=== PATIENT | female | born 1940 | race Caucasian/White ===

== ENCOUNTER 2017-04-21 14:26 | Day surgery (SDC) | payer OTHER, SELFPAY ==
[~2017-04-21] VITALS: Ht 160 cm; Wt 99.4 kg
[~2017-04-21 14:26] MED LIST: ACET500 PO; AMIT10 PO; AMIT25 PO; ASCO500 PO; ASPI325 PO; ASPI81CH PO; CALGLU500 PO; CELE200 PO; CHOL10002 PO; CYAN500 PO; DICL25ER PO; DIPH50 PO; DOXE25 PO; ERGO400 PO; ESOM20 PO; FOLI400 PO; GABA300 PO; GENPREOPSU; HYDR1TAB94 PO; LORA10 PO; NAPR250 PO; NAPR500 PO; OXYACE5T PO; POTA10T PO; POTASSIUM GLUCONATE PO; PRED1SU RIGHTEYE; ROXICODONE5 MG PO
[2017-04-29] MEDS ORDERED: CYCL10 PO (08:03)
== END 2017-04-21 16:16 | disposition home or self-care (01) ==
LOC: ORSCSDS 14:26
PROVIDERS: Orthopaedic Surgery
PROC: 3E0R33Z Introduction of Anti-inflammatory into Spinal Canal, Percutaneous Approach (ICD-10-PCS; principal; 2017-04-21 15:30)
DX: M48.062 Spinal stenosis, lumbar region with neurogenic claudication (principal); I10 Essential (primary) hypertension; Z87.891 Personal history of nicotine dependence
CPT/HCPCS: J1040

== ENCOUNTER 2017-04-26 09:52 | Inpatient (IN) | END 2017-04-29 10:10 | disposition home or self-care (01) | DRG 93 ==

== ENCOUNTER 2018-03-04 11:42 | Emergency (ER) | payer OTHER ==
[~2018-03-04] VITALS: Ht 160 cm; Wt 83.9 kg
[~2018-03-04 11:42] MED LIST changes: +CYCL10 PO
[2018-03-04 12:59] LABS: BASOPHILS ABSOLUTE AUTO 0.06 K/mm3 (0.00-0.23); BASOPHILS PERCENT AUTO 1 % (0-2); EOSINOPHILS ABSOLUTE AUTO 0.11 K/mm3 (0.00-0.68); EOSINOPHILS PERCENT AUTO 2 % (0-6); Hematocrit 37.1 % (33.0-51.0); Hemoglobin 12.6 g/dL (11.5-16.0); IMMATURE GRAN ABSOLUTE AUTO 0.02 K/mm3 (0.00-0.10); IMMATURE GRAN PERCENT AUTO 0 % (0-1); LYMPHOCYTES ABSOLUTE AUTO 1.27 K/mm3 (0.84-5.20); LYMPHOCYTES PERCENT AUTO 21 % (21-46); MONOCYTES ABSOLUTE AUTO 0.44 K/mm3 (0.16-1.47); MONOCYTES PERCENT AUTO 7 % (4-13); Mean Corpuscular HGB 37.1 pg (26.0-34.0); Mean Corpuscular Volume 109 fL (80-100); Mean Platelet Volume 9.9 fL (9.1-12.4); NEUTROPHILS ABSOLUTE AUTO 4.27 K/mm3 (1.96-9.15); NEUTROPHILS PERCENT AUTO 69 % (41-73); Platelet Count 199 K/mm3 (150-400); RDW Coefficient Variation 14.1 % (11.7-14.2); RDW Standard Deviation 55.8 fL (35.1-46.3); White Blood Cell Count 6.17 K/mm3 (4.00-11.30)
[2018-03-04 13:16] LABS: Alanine Aminotransfer (ALT/SGP 38 U/L (12-78); Albumin, Blood 2.2 g/dL (3.4-5.0); Albumin/Globulin Ratio 0.5 (0.8-1.8); Alk Phos 135 U/L (50-136); Anion Gap 6 mmol/L (6-16); Aspartate Aminotrans (AST/SGOT 70 U/L (12-37); Bilirubin, Total 1.5 mg/dL (0.1-1.0); Blood Urea Nitrogen 6 mg/dL (8-24); Bun/Creatinine Ratio 10.8 (12.0-20.0); CO2, Blood 28 mmol/L (21-32); Calcium, Blood 8.4 mg/dL (8.5-10.1); Chloride, Blood 105 mmol/L (98-108); Creatinine, Blood 0.56 mg/dL (0.40-1.00); Globulin, Blood 4.7 g/dL (2.2-4.0); Glomerular Filtration Rate >60 (60-); Glucose, Blood 123 mg/dL (70-99); Potassium, Blood 3.7 mmol/L (3.5-5.5); Sodium, Blood 139 mmol/L (136-145); Total Protein, Blood 6.9 g/dL (6.4-8.2)
[2018-03-04 13:48] LABS: Appearance, Urine Cloudy (Clear); Blood, Urine 1+ (Neg); Color, Urine Amber (P-Yellow); Glucose Qualitative, Urine Neg (Neg); Ketones, Urine 1+ (Neg); Leukocyte Esterase, Urine 3+ (Neg); Nitrite, Urine Pos (Neg); Protein, Urine 2+ (Neg); Urobilinogen, Urine 4+ (Normal)
[2018-03-04 14:00] LABS: Bilirubin, Urine 1+ (Neg)
[2018-03-04 14:02] LABS: Squamous Epithelial Cells Few /hpf (Few)
[2018-03-04 14:03] LABS: Bacteria Many /hpf
[2018-03-04] MEDS ORDERED: Bactrim Ds Tab1 EACH PO (14:09)
[2018-03-04] MEDS ORDERED: Norco 5-325 Ta1 EACH PO (14:09)
== END 2018-03-04 14:59 | disposition home or self-care (01) ==
LOC: ER 11:42
PROVIDERS: Emergency Medicine
DX: S22.089A Unspecified fracture of T11-T12 vertebra, initial encounter for closed fracture (principal); N39.0 Urinary tract infection, site not specified; W19.XXXA Unspecified fall, initial encounter; Z88.0 Allergy status to penicillin; Z88.8 Allergy status to other drugs, medicaments and biological substances; Z88.1 Allergy status to other antibiotic agents; Z91.048 Other nonmedicinal substance allergy status; Z91.040 Latex allergy status; Z79.899 Other long term (current) drug therapy; Z79.52 Long term (current) use of systemic steroids; Z79.82 Long term (current) use of aspirin; K21.9 Gastro-esophageal reflux disease without esophagitis; Z87.891 Personal history of nicotine dependence
CPT/HCPCS: 70450; 71045; 72100; 80053; 81001; 83880; 85025; 87077; 87086; 87186; 96374; 96375; 99284-25; J1885; J2405; J3010; P9612

== ENCOUNTER 2018-06-13 10:16 | Day surgery (SDC) | payer OTHER ==
[~2018-06-13 10:16] MED LIST changes: +Bactrim Ds Tab1 EACH PO; +Norco 5-325 Ta1 EACH PO
--- NOTE | 2018-06-13 10:45 | NUR ---
INTO [facility] ADMISSION STARTED TO UNIT.
--- NOTE | 2018-06-13 11:11 | NUR ---
4 ATTEMPTS FIRST TWO BY Saad KEVIN 2ND 2 BY Obi COX RN
--- NOTE | 2018-06-13 11:35 | NUR ---
06/13/18 1135 Reina Fernando History, Chart, Medications and Allergies reviewed before start of procedure.PATIENT DETERMINED TO BE ASA APPROPRIATE FOR PROPOFOL SEDATION PRIOR TO START OF PROCEDURE BY .MONITOR INTACT WITH CONTINUOUS PULSE OXIMETRY AND INTERMITTENT BP.3-LEAD EKG REVIEWED WITH PHYSICIAN PRIOR TO START OF PROCEDURE.O2 VIA N/C INTACT THROUGHOUT SEDATION/PROCEDURE.
--- NOTE | 2018-06-13 11:46 | NUR ---
INTO STEP VIA [facility]ZANDRO. PT A&0X3. REPORTS 5/10 "BUTT" PAIN. IRRITATION AND MILD EXCORIATED NOTED PER DR. ANDERSON. PT TO HAVE RX FOR LOTRIMIN CREAM. CALAZIME OINTMENT APPLIED.WILL SEND HOME WITH PATIENT.
--- NOTE | 2018-06-13 13:14 | NUR ---
PT REPORTED ONGOING "BUTT" PAIN. PT STATED THAT THE PAIN STARTED APOOXIMATELY 1 YEAR AGO FOLLOWING AN EPIDURAL STEROID INJECTION. PT APPEARS QUITE VAGUE WHEN DESCRIBING THE PAIN. PT STATES THAT THE PAIN IS "SEVERE" AND THAT SHE DOESN'T RECALL IT EVER HURTING THIS BAD. PT DID DRINK PO FLUIDS WITHOUT DIFFICULTY. VS WDL THROUGH OUT RECOVERY. REVIEWED DISCHARGE INSTRUCTIONS WITH PATIENT AND HER SPOUSE. BOTH VERBALIZE UNDERSTANDING. PT REMINDED TO FOLLOW UP WITH PRIMARY CARE PROVIDER.
--- NOTE | 2018-06-13 13:23 | NUR ---
WHEN TAKING PATIENT OUT TO [facility]IDE HOME, STOPPED BY RN NURSE. FELL IN PARKING LOT, HIT HEAD, TAKEN TO ER. ER NURSE TOOK PATIENT TO SEE HER IN ER. INFORMED PATIENT UNABLE TO DRIVE DUE TO SEDATION. ER NURSE REPORTS HE WILL TRY TO ARRANGE TRANSPORT FOR PATIENT AND SPOUSE AFTER HE IS ABLE TO BE SEEN AND TREATED IN ER.
== END 2018-06-13 13:20 | disposition home or self-care (01) ==
LOC: ORSCMMR 10:16 → ORD 11:00 → ORSCMMR 13:20
PROVIDERS: Internal Medicine Gastroenterology
PROC: 0DBN8ZX Excision of Sigmoid Colon, Via Natural or Artificial Opening Endoscopic, Diagnostic (ICD-10-PCS; principal; 2018-06-13 11:00)
PROC: 0DBH8ZX Excision of Cecum, Via Natural or Artificial Opening Endoscopic, Diagnostic (ICD-10-PCS; principal; 2018-06-13 11:00)
PROC: 0DBL8ZX Excision of Transverse Colon, Via Natural or Artificial Opening Endoscopic, Diagnostic (ICD-10-PCS; principal; 2018-06-13 11:00)
PROC: 0DBM8ZX Excision of Descending Colon, Via Natural or Artificial Opening Endoscopic, Diagnostic (ICD-10-PCS; principal; 2018-06-13 11:00)
DX: K62.5 Hemorrhage of anus and rectum (principal); D12.3 Benign neoplasm of transverse colon; D12.4 Benign neoplasm of descending colon; K63.5 Polyp of colon; K64.4 Residual hemorrhoidal skin tags; K64.8 Other hemorrhoids; Z86.010 Personal history of colon polyps; Z79.82 Long term (current) use of aspirin; Z79.899 Other long term (current) drug therapy
CPT/HCPCS: 88305; J2250; J2704; J7120

== ENCOUNTER → 2018-07-20 | Outpatient (CLI) | payer OTHER | END | disposition home or self-care (01) | LOC: LAB EV 12:30 → LAB SHORT 12:30 | DX: R39.15 Urgency of urination (principal) | CPT/HCPCS: 87077; 87086; 87186 ==

== ENCOUNTER → 2018-09-15 | Outpatient (CLI) | payer OTHER | END | disposition home or self-care (01) | LOC: LAB EV 11:45 → LAB SHORT 11:45 | DX: R21 Rash and other nonspecific skin eruption (principal) | CPT/HCPCS: 87070; 87205; 87252; 87254 ==

== ENCOUNTER 2020-07-17 11:55 | Emergency (ER) | payer OTHER ==
[~2020-07-17] VITALS: Ht 162.6 cm; Wt 61.2 kg
[2020-07-17 12:33] LABS: BASOPHILS ABSOLUTE AUTO 0.07 K/mm3 (0.00-0.23); BASOPHILS PERCENT AUTO 1 % (0-2); EOSINOPHILS ABSOLUTE AUTO 0.07 K/mm3 (0.00-0.68); EOSINOPHILS PERCENT AUTO 1 % (0-6); Hematocrit 42.9 % (33.0-51.0); IMMATURE GRAN ABSOLUTE AUTO 0.02 K/mm3 (0.00-0.10); IMMATURE GRAN PERCENT AUTO 0 % (0-1); LYMPHOCYTES PERCENT AUTO 22 % (21-46); MONOCYTES ABSOLUTE AUTO 0.48 K/mm3 (0.16-1.47); MONOCYTES PERCENT AUTO 7 % (4-13); Mean Corpuscular Volume 100 fL (80-100); Mean Platelet Volume 10.2 fL (9.1-12.4); NEUTROPHILS ABSOLUTE AUTO 4.83 K/mm3 (1.96-9.15); NEUTROPHILS PERCENT AUTO 69 % (41-73); Platelet Count 239 K/mm3 (150-400); RDW Coefficient Variation 12.2 % (11.7-14.2); RDW Standard Deviation 45.2 fL (35.1-46.3); Red Blood Cell Count 4.28 M/mm3 (3.80-5.20); White Blood Cell Count 6.97 K/mm3 (4.00-11.30)
[2020-07-17 12:42] LABS: International Normalized Ratio 1.03; Prothrombin Time Results 11.1 Sec (9.7-11.5)
[2020-07-17 12:45] LABS: Alanine Aminotransfer (ALT/SGP 25 U/L (12-78); Albumin, Blood 3.4 g/dL (3.4-5.0); Albumin/Globulin Ratio 0.8 (0.8-1.8); Alk Phos 108 U/L (50-136); Anion Gap 3 mmol/L (6-16); Aspartate Aminotrans (AST/SGOT 26 U/L (12-37); Bilirubin, Total 0.4 mg/dL (0.1-1.0); Blood Urea Nitrogen 14 mg/dL (8-24); Bun/Creatinine Ratio 20.1 (12.0-20.0); CO2, Blood 28 mmol/L (21-32); Calcium, Blood 9.6 mg/dL (8.5-10.1); Chloride, Blood 107 mmol/L (98-108); Globulin, Blood 4.1 g/dL (2.2-4.0); Glomerular Filtration Rate >60 (60-); Glucose, Blood 146 mg/dL (70-99); Sodium, Blood 138 mmol/L (136-145); Total Protein, Blood 7.5 g/dL (6.4-8.2)
== END 2020-07-17 16:03 | disposition short-term general hospital (02) ==
LOC: ER 11:55
PROVIDERS: Emergency Medicine
DX: I63.9 Cerebral infarction, unspecified (principal); R47.01 Aphasia; G81.91 Hemiplegia, unspecified affecting right dominant side; K21.9 Gastro-esophageal reflux disease without esophagitis; Z79.82 Long term (current) use of aspirin; Z79.899 Other long term (current) drug therapy; Z88.0 Allergy status to penicillin; Z91.040 Latex allergy status; Z87.891 Personal history of nicotine dependence
CPT/HCPCS: 36415; 37195; 70450; 70496; 70498; 80053; 84484; 85025; 85610; 85730; 93005; 93010; 99285-25; J2997; Q3014; Q9967

== ENCOUNTER 2021-06-08 01:11 | Inpatient (IN) | payer OTHER, MEDICARE ==
[~2021-06-08] VITALS: Ht 154.9 cm; Wt 57.1 kg
[2021-06-08 06:15] LABS: BASOPHILS ABSOLUTE AUTO 0.05 K/mm3 (0.00-0.23); BASOPHILS PERCENT AUTO 1 % (0-2); EOSINOPHILS ABSOLUTE AUTO 0.05 K/mm3 (0.00-0.68); EOSINOPHILS PERCENT AUTO 1 % (0-6); Hematocrit 37.3 % (33.0-51.0); Hemoglobin 13.1 g/dL (11.5-16.0); IMMATURE GRAN ABSOLUTE AUTO 0.02 K/mm3 (0.00-0.10); IMMATURE GRAN PERCENT AUTO 0 % (0-1); LYMPHOCYTES ABSOLUTE AUTO 0.81 K/mm3 (0.84-5.20); LYMPHOCYTES PERCENT AUTO 10 % (21-46); MONOCYTES ABSOLUTE AUTO 0.54 K/mm3 (0.16-1.47); MONOCYTES PERCENT AUTO 6 % (4-13); Mean Corpuscular HGB 33.9 pg (26.0-34.0); Mean Corpuscular HGB Conc 35.1 g/dL (31.5-36.5); Mean Corpuscular Volume 97 fL (80-100); Mean Platelet Volume 10.1 fL (9.1-12.4); NEUTROPHILS ABSOLUTE AUTO 6.98 K/mm3 (1.96-9.15); NEUTROPHILS PERCENT AUTO 83 % (41-73); Platelet Count 163 K/mm3 (150-400); RDW Coefficient Variation 12.7 % (11.7-14.2); RDW Standard Deviation 45.1 fL (35.1-46.3); Red Blood Cell Count 3.86 M/mm3 (3.80-5.20); White Blood Cell Count 8.45 K/mm3 (4.00-11.30)
--- NOTE | 2021-06-08 06:29 | NUR ---
PT ARRIVED TO THE FLOOR AT APPROX 0535. A/O X4. VITAL SIGNS TAKEN. TELE PLACED ON PATIENT. PT APPEARS TO BE IN SIGNIFICANT AMOUNT OF PAIN. R LEG INTERNALLY ROTATED AT THE HIP. SCATTERED BRUISING THROUGHOUT. WILL CONTINUE TO MONITOR.
[2021-06-08 06:35] LABS: Alanine Aminotransfer (ALT/SGP 23 U/L (12-78); Albumin, Blood 3.4 g/dL (3.4-5.0); Alk Phos 72 U/L (50-136); Anion Gap 10 mmol/L (6-16); Aspartate Aminotrans (AST/SGOT 22 U/L (12-37); Bilirubin, Total 0.8 mg/dL (0.1-1.0); Blood Urea Nitrogen 8 mg/dL (8-24); Bun/Creatinine Ratio 15.4 (12.0-20.0); CO2, Blood 23 mmol/L (21-32); Chloride, Blood 107 mmol/L (98-108); Creatinine, Blood 0.52 mg/dL (0.40-1.00); Globulin, Blood 3.4 g/dL (2.2-4.0); Glomerular Filtration Rate >60 (60-); Glucose, Blood 141 mg/dL (70-99); Potassium, Blood 3.8 mmol/L (3.5-5.5); Sodium, Blood 140 mmol/L (136-145); Total Protein, Blood 6.8 g/dL (6.4-8.2)
[2021-06-08 07:52] LABS: International Normalized Ratio 1.09; Prothrombin Time Results 11.4 Sec (9.7-11.5)
[2021-06-08] MEDS ORDERED: CLOP75 PO (09:24)
[2021-06-08] MEDS ORDERED: TRAM50 PO (09:25)
[2021-06-08] MEDS ORDERED: ALEN70 PO (09:26)
[2021-06-08] MEDS ORDERED: METO25 PO (09:27)
[2021-06-08] MEDS ORDERED: CVS AIRSHIELD PO (09:28)
--- NOTE | 2021-06-08 09:30 | NUR ---
DR PHILIPPE NOTIFIED THAT PT TAKES PLAVIX DAILY. PLAN FOR OR TOMORROW.
--- NOTE | 2021-06-08 18:32 | NUR ---
SHIFT SUMMARY UNFORTUNATLY PAIN WAS POORLY MANAGED w/ FENTANYL. MD CALLED & NEW ORDERS RECEIVED. PT STILL C/O HIGH PAIN BUT IS NOTICABLY MORE RELAXED, ABLE TO DRINK WATER, NO MORE GRIMACING, WAS ABLE TO PLACE FERREIRA. NPO AFTER MIDNIGHT & PLAN FOR OR TOMORROW.
[2021-06-09 04:24] LABS: Hematocrit 33.6 % (33.0-51.0); Hemoglobin 11.5 g/dL (11.5-16.0); Mean Corpuscular HGB 33.8 pg (26.0-34.0); Mean Corpuscular HGB Conc 34.2 g/dL (31.5-36.5); Mean Corpuscular Volume 99 fL (80-100); Mean Platelet Volume 10.2 fL (9.1-12.4); Platelet Count 146 K/mm3 (150-400); RDW Coefficient Variation 12.9 % (11.7-14.2); RDW Standard Deviation 46.5 fL (35.1-46.3); White Blood Cell Count 7.31 K/mm3 (4.00-11.30)
--- NOTE | 2021-06-09 04:26 | NUR ---
SHIFT SUMMARY PT VERY PAINFUL AT START OF SHIFT R/T TO RIGHT HIP WHICH HAS REMAINED EXTERNALLY ROTATED. 0.5MG IV DILAUDID GIVEN X1 WHICH PT REPORTS EFFECTIVE. PT CONT TO DECLINE BEING REPOSITIONED T/O SHIFT. NPO AT MIDNIGHT FOR SURGERY TODAY. FERREIRA INTACT. TELE IN PLACE. CALL LIGHT WITHIN REACH.
[2021-06-09 04:47] LABS: Alanine Aminotransfer (ALT/SGP 24 U/L (12-78); Albumin/Globulin Ratio 0.9 (0.8-1.8); Alk Phos 54 U/L (50-136); Anion Gap 6 mmol/L (6-16); Aspartate Aminotrans (AST/SGOT 14 U/L (12-37); Bilirubin, Total 1.2 mg/dL (0.1-1.0); Blood Urea Nitrogen 10 mg/dL (8-24); Bun/Creatinine Ratio 19.6 (12.0-20.0); CO2, Blood 27 mmol/L (21-32); Calcium, Blood 8.6 mg/dL (8.5-10.1); Chloride, Blood 105 mmol/L (98-108); Creatinine, Blood 0.51 mg/dL (0.40-1.00); Globulin, Blood 3.3 g/dL (2.2-4.0); Glomerular Filtration Rate >60 (60-); Glucose, Blood 132 mg/dL (70-99); Potassium, Blood 3.7 mmol/L (3.5-5.5); Sodium, Blood 138 mmol/L (136-145); Total Protein, Blood 6.3 g/dL (6.4-8.2)
[2021-06-09 09:05] LABS: Influenza A, PCR NEGATIVE (NEGATIVE); Influenza B, PCR NEGATIVE (NEGATIVE); Resp Syncytial Virus, PCR NEGATIVE (NEGATIVE); SARS-Cov-2 (COVID-19) PCR, MMC NEGATIVE (NEGATIVE)
--- NOTE | 2021-06-09 10:49 | NUR ---
Pt. is in bed and is awake. Pt. welcomes my visit. Pt. is pleasant and has little concerns after surgery. Pt. is a bit unsettled by the wait for discharge, but is overall in a pleasant disposition. Normalize the pt. experience. Establish rapport. Pt. displays evidence of confidence and encouragement. Prayed for the pt. Pt. verbalized gratitude for the spiritual care visit.
--- NOTE | 2021-06-09 11:39 | NUR ---
TO DAY SURGERY VIA HOSPTIAL BED
--- NOTE | 2021-06-09 11:44 | NUR ---
THE PATIENT WAS BROUGHT TO DAY SURGERY FOR HER PROCEDURE.
--- NOTE | 2021-06-09 13:49 | NUR ---
06/09/21 1349 Paco Mccoy PATIENT ARRIVED TO OR WITH FERREIRA CATH IN PLACE. FERREIRA DRAINED FOR 200 ML ANGEL CLOUDY URINE
--- NOTE | 2021-06-09 15:15 | NUR ---
POST OP ARRIVES TO UNIT VIA HOSPITAL BED. DROWSY BUT OPENS EYES & ANSWERS YES/NO ?'s. LUNGS CLEAR SLIGHTLY DIM IN BASES. WEAK COUGH. 2L NC. TELE REPLACED. R HIP w/ FOAM TAPE OVER x 2; POSTERIORLY. PPP. RESTING w/ EYES CLOSED. VSS.
--- NOTE | 2021-06-10 04:03 | NUR ---
SHIFT SUMMARY NO ACUTE CHANGES. PT REFUSES TO BE REPOSITIONED T/O SHIFT. ULTRAM FOR RIGHT HIP PAIN PRN. DRESSING TO HIP REMAINS CDI. FERREIRA IN PLACE. IVF + ABX INFUSING PER ORDERS. TELE IN PLACE. CALL LIGHT WITHIN REACH.
[2021-06-10 05:29] LABS: BASOPHILS ABSOLUTE AUTO 0.01 K/mm3 (0.00-0.23); BASOPHILS PERCENT AUTO 0 % (0-2); EOSINOPHILS PERCENT AUTO 0 % (0-6); Hematocrit 29.6 % (33.0-51.0); Hemoglobin 10.3 g/dL (11.5-16.0); IMMATURE GRAN ABSOLUTE AUTO 0.01 K/mm3 (0.00-0.10); IMMATURE GRAN PERCENT AUTO 0 % (0-1); LYMPHOCYTES ABSOLUTE AUTO 0.52 K/mm3 (0.84-5.20); LYMPHOCYTES PERCENT AUTO 9 % (21-46); MONOCYTES ABSOLUTE AUTO 0.46 K/mm3 (0.16-1.47); MONOCYTES PERCENT AUTO 8 % (4-13); Mean Corpuscular HGB Conc 34.8 g/dL (31.5-36.5); Mean Corpuscular Volume 98 fL (80-100); Mean Platelet Volume 10.7 fL (9.1-12.4); NEUTROPHILS ABSOLUTE AUTO 4.77 K/mm3 (1.96-9.15); NEUTROPHILS PERCENT AUTO 83 % (41-73); Platelet Count 158 K/mm3 (150-400); RDW Coefficient Variation 12.3 % (11.7-14.2); RDW Standard Deviation 44.2 fL (35.1-46.3); Red Blood Cell Count 3.03 M/mm3 (3.80-5.20); White Blood Cell Count 5.77 K/mm3 (4.00-11.30)
[2021-06-10 06:02] LABS: Anion Gap 5 mmol/L (6-16); Blood Urea Nitrogen 8 mg/dL (8-24); Bun/Creatinine Ratio 17.8 (12.0-20.0); CO2, Blood 27 mmol/L (21-32); Calcium, Blood 8.4 mg/dL (8.5-10.1); Chloride, Blood 105 mmol/L (98-108); Creatinine, Blood 0.45 mg/dL (0.40-1.00); Glomerular Filtration Rate >60 (60-); Glucose, Blood 193 mg/dL (70-99); Magnesium, Blood 1.9 mg/dL (1.6-2.4); Potassium, Blood 3.9 mmol/L (3.5-5.5); Sodium, Blood 137 mmol/L (136-145)
--- NOTE | 2021-06-10 11:10 | NUR ---
Pt. is in bed and awake. Pt. welcomes my visit. Spouse is present. Pt. is very unsettled by the news that she would be discharged to a local senior care. Listen empathetically. Pt. becomes cathartic. Provided a calming presence. Pt. verbalized her concerns were based on past experience. Pt. requested prayer. Prayed with Pt. Pt. and spouse displayed evidence of reduced stress and verbalized gratitude for the spiritual care visit.
--- NOTE | 2021-06-10 17:11 | NUR ---
SHIFT SUMMARY PT WAS PAINFUL BUT WORKED w/ OT THIS AM & PT IN THE AFTERNOON. CURRENTLY STILL UP IN CHAIR. EATING & DRINKING WELL SO WAS SL. DR PHILIPPE CHANGED SHARA TO TIMOTHY x 2. JHON COREY'd THIS AFTERNOON; ATTENDS PLACED FOR INCONTINENCE.
[2021-06-11 04:49] LABS: Hematocrit 27.3 % (33.0-51.0); Hemoglobin 9.3 g/dL (11.5-16.0); Mean Corpuscular HGB 33.8 pg (26.0-34.0); Mean Corpuscular HGB Conc 34.1 g/dL (31.5-36.5); Mean Corpuscular Volume 99 fL (80-100); Mean Platelet Volume 10.3 fL (9.1-12.4); Platelet Count 140 K/mm3 (150-400); RDW Coefficient Variation 12.6 % (11.7-14.2); Red Blood Cell Count 2.75 M/mm3 (3.80-5.20); White Blood Cell Count 5.33 K/mm3 (4.00-11.30)
--- NOTE | 2021-06-11 05:07 | NUR ---
SHIFT SUMMARY NO ACUTE CHANGES TO REPORT THIS SHIFT. POD 1 R HIP NAILING, DRESSING IN PLACE C/D/I. PT HAS NOT COMPLAINED OF ANY PAIN THIS SHIFT AND HAS RESTED COMFORTABLY T/O THE NIGHT. VITALS ARE STABLE. PT A/OX4. SLOW TO AMBULATE, MAX 2 PA WITH FWW, NEEDS LOTS OF VERBAL DIRECTION. ASSESSMENT UNCHANGED. BED IN LOWEST POSITION, CALL LIGHT WITHIN REACH.
[2021-06-11 05:26] LABS: Alanine Aminotransfer (ALT/SGP 17 U/L (12-78); Albumin, Blood 2.4 g/dL (3.4-5.0); Albumin/Globulin Ratio 0.8 (0.8-1.8); Alk Phos 43 U/L (50-136); Anion Gap 5 mmol/L (6-16); Aspartate Aminotrans (AST/SGOT 12 U/L (12-37); Bilirubin, Total 0.6 mg/dL (0.1-1.0); Blood Urea Nitrogen 9 mg/dL (8-24); Bun/Creatinine Ratio 16.5 (12.0-20.0); CO2, Blood 30 mmol/L (21-32); Calcium, Blood 8.4 mg/dL (8.5-10.1); Chloride, Blood 108 mmol/L (98-108); Creatinine, Blood 0.55 mg/dL (0.40-1.00); Ferritin, Serum 229 ng/mL (8-252); Globulin, Blood 3.1 g/dL (2.2-4.0); Glomerular Filtration Rate >60 (60-); Glucose, Blood 111 mg/dL (70-99); Iron Serum 40 ug/dL (50-170); Percent Saturation 23.1 % (15.0-50.0); Potassium, Blood 3.6 mmol/L (3.5-5.5); Sodium, Blood 143 mmol/L (136-145); Total Iron Binding Capacity 173 ug/dL (250-450); Total Protein, Blood 5.5 g/dL (6.4-8.2)
[2021-06-11 12:17] LABS: Influenza A, PCR NEGATIVE (NEGATIVE); Influenza B, PCR NEGATIVE (NEGATIVE); Resp Syncytial Virus, PCR NEGATIVE (NEGATIVE); SARS-Cov-2 (COVID-19) PCR, MMC NEGATIVE (NEGATIVE)
--- NOTE | 2021-06-11 14:39 | NUR ---
TRANSFER SUMMARY REPORT CALLED TO ALIA AT [facility]. PT A&OX4, VSS/RA, VOIDING, MARIANNE, PAIN MANAGED WELL WITH TYLENOL AND ULTRAM, IV DC'D. STAND PIVOT TTWB 2 PP MAX ASSIST, TEDS ON.
== END 2021-06-11 14:39 | DRG 482 ==
LOC: ER 01:11 → SURS 03:30
PROVIDERS: Internal Medicine; Orthopaedic Surgery; ADMIT Internal Medicine
PROC: 0QS634Z Reposition Right Upper Femur with Internal Fixation Device, Percutaneous Approach (ICD-10-PCS; principal; 2021-06-09 12:30)
DX: S72.141A Displaced intertrochanteric fracture of right femur, initial encounter for closed fracture (principal); Z20.822 Contact with and (suspected) exposure to COVID-19; S72.21XA Displaced subtrochanteric fracture of right femur, initial encounter for closed fracture; M06.9 Rheumatoid arthritis, unspecified; K21.9 Gastro-esophageal reflux disease without esophagitis; G89.29 Other chronic pain; G47.00 Insomnia, unspecified; Z86.73 Personal history of transient ischemic attack (TIA), and cerebral infarction without residual deficits; Z91.040 Latex allergy status; Z90.721 Acquired absence of ovaries, unilateral; Z90.89 Acquired absence of other organs; Z98.890 Other specified postprocedural states; Z87.891 Personal history of nicotine dependence; Z88.0 Allergy status to penicillin; Z88.1 Allergy status to other antibiotic agents; Z79.899 Other long term (current) drug therapy; W18.39XA Other fall on same level, initial encounter; Z86.010 Personal history of colon polyps; Y92.000 Kitchen of unspecified non-institutional (private) residence as the place of occurrence of the external cause; D64.9 Anemia, unspecified
CPT/HCPCS: 0241U; 36415; 73502; 80048; 80053; 82728; 83540; 83550; 83735; 83880; 85025; 85027; 85610; 93005; 93010; 96374; 96375; 97112; 97161; 97166; 97530; 97535; 99284-25; A9270; C1713; C1769; J1100; J1170; J2270; J2370; J2405; J2704; J3010; J3370; J7030; J7050; J7120

== ENCOUNTER 2023-03-26 13:10 | Inpatient (IN) | payer OTHER, MEDICARE ==
[~2023-03-26] VITALS: Ht 157.5 cm; Wt 61.7 kg
[~2023-03-26 13:10] MED LIST changes: +ALEN70 PO; +CLOP75 PO; +CVS AIRSHIELD PO; +METO25 PO; +TRAM50 PO
[2023-03-26 15:54] LABS: Source, Urine Foley catheter
[2023-03-26 15:58] LABS: Appearance, Urine Hazy (Clear); Bilirubin, Urine Neg (Neg); Blood, Urine Neg (Neg); Color, Urine Yellow (P-Yellow); Glucose Qualitative, Urine Neg (Neg); Ketones, Urine 2+ (Neg); Leukocyte Esterase, Urine 1+ (Neg); Nitrite, Urine Pos (Neg); Protein, Urine Neg (Neg); Specific Gravity, Urine 1.015 (1.003-1.022); Urobilinogen, Urine NORM (Normal)
[2023-03-26 16:12] LABS: Bacteria Many /hpf; Red Blood Cells, Urine Not Seen /hpf (0-2); Squamous Epithelial Cells Rare /hpf (Few)
[2023-03-26 17:26] LABS: Albumin, Blood 3.4 g/dL (3.4-5.0); Albumin/Globulin Ratio 1.1 (0.8-1.8); Bilirubin, Total 0.5 mg/dL (0.1-1.0); Calcium, Blood 8.7 mg/dL (8.5-10.1); Creatinine, Blood 0.5 mg/dL (0.40-1.00); Globulin, Blood 3.2 g/dL (2.2-4.0); Potassium, Blood 3.8 mmol/L (3.5-5.5); Total Protein, Blood 6.6 g/dL (6.4-8.2)
[2023-03-26 18:01] VITALS: BP 168/81
[2023-03-26] MEDS ORDERED: ASPI325 PO (18:09)
[2023-03-26 18:39] LABS: BASOPHILS ABSOLUTE AUTO 0.04 K/mm3 (0.00-0.23); BASOPHILS PERCENT AUTO 0 % (0-2); EOSINOPHILS PERCENT AUTO 0 % (0-6); Hematocrit 37.3 % (33.0-51.0); Hemoglobin 12.9 g/dL (11.5-16.0); IMMATURE GRAN ABSOLUTE AUTO 0.03 K/mm3 (0.00-0.10); IMMATURE GRAN PERCENT AUTO 0 % (0-1); LYMPHOCYTES ABSOLUTE AUTO 0.69 K/mm3 (0.84-5.20); LYMPHOCYTES PERCENT AUTO 6 % (21-46); MONOCYTES ABSOLUTE AUTO 0.43 K/mm3 (0.16-1.47); MONOCYTES PERCENT AUTO 4 % (4-13); Mean Corpuscular HGB 33.2 pg (26.0-34.0); Mean Corpuscular HGB Conc 34.6 g/dL (31.5-36.5); Mean Corpuscular Volume 96 fL (80-100); Mean Platelet Volume 9.9 fL (9.1-12.4); NEUTROPHILS ABSOLUTE AUTO 10.83 K/mm3 (1.96-9.15); NEUTROPHILS PERCENT AUTO 90 % (41-73); Platelet Count 192 K/mm3 (150-400); RDW Coefficient Variation 12.6 % (11.7-14.2); RDW Standard Deviation 44.2 fL (35.1-46.3); Red Blood Cell Count 3.89 M/mm3 (3.80-5.20); White Blood Cell Count 12.02 K/mm3 (4.00-11.30)
--- NOTE | 2023-03-26 18:46 | NUR ---
ADMISSION SUMMARY PATIENT ARRIVED TO SURGICAL FLOOR APPROX. 1800 VIA GURNEY. SLIDE TRANSFER TO BED WITH SLIDE SHEET AND 4 STAFF ASSIST. SURGICAL SPLINT PETRONA WRAPPED PRESENT TO RIGHT LEG, TOES COOL COMPARED TO LEFT, CAP REFILL <3 SEC, ABLE TO MOVE ALL DIGITS, UNABLE TO FEEL PULSE BECAUSE OF SPLINT. A/O X4, UNABLE TO VERIFY WITH CERTAINTY ABOUT HOME MEDICATIONS. FERREIRA CATH IN PLACE ON ADMISSION TO FLOOR, ED REPORT STATES IT WAS STARTED THERE. SKIN INTACT, POOR HYGIENE TO ALL TOENAILS. IV PRESENT TO RIGHT AC. CARES ONGOING.
[2023-03-26 22:33] VITALS: BP 135/63
[2023-03-27 02:08] VITALS: BP 118/63
[2023-03-27 05:19] LABS: Hematocrit 31.1 % (33.0-51.0); Hemoglobin 10.9 g/dL (11.5-16.0); Mean Corpuscular HGB 33.2 pg (26.0-34.0); Mean Corpuscular Volume 95 fL (80-100); Mean Platelet Volume 10.3 fL (9.1-12.4); Platelet Count 199 K/mm3 (150-400); RDW Coefficient Variation 12.5 % (11.7-14.2); RDW Standard Deviation 43.8 fL (35.1-46.3); Red Blood Cell Count 3.28 M/mm3 (3.80-5.20); White Blood Cell Count 8.27 K/mm3 (4.00-11.30)
[2023-03-27 05:41] LABS: Bun/Creatinine Ratio 18.4 (12.0-20.0); Calcium, Blood 8.6 mg/dL (8.5-10.1); Creatinine, Blood 0.49 mg/dL (0.40-1.00); Potassium, Blood 3.8 mmol/L (3.5-5.5)
[2023-03-27 07:21] VITALS: BP 116/68
--- NOTE | 2023-03-27 07:36 | NUR ---
SHIFT SUMMARY NOC. PT A/O X4 BUT FORGETS LIMITATIONS. PT ATTEMPTED TO GET UP OUT OF BED THIS SHIFT. BED ALARM SET FOR SAFETY. PT MOVED FROM ROOM 221 TO ROOM 215 THIS SHIFT. PT MEDICATED FOR PAIN WITH MINIMAL RELIEF. PT HAS BEEN NPO SINCE MIDNIGHT ASIDE FROM A SIP OF WATER WITH PAIN PILL. PT REPORTED TROUBLE SLEEPING. PT RESTED WITH EYES CLOSED AND CALL LIGHT IN REACH.
--- NOTE | 2023-03-27 12:26 | NUR ---
TELEPHONE CALL WITH SON KIANA [phone]: KIANA [phone] - WILL BE IN TUESDAY MORNING. MED REC IS INCOMPLETE, PATIENT PCP IS DR OLIVERA [phone], BUT APPARENTLY PATIENT HAS NOT SEEN PCP FOR 3 YEARS. I TRIED TO LEAVE A MESSAGE FOR A MED REC TO BE FAXED BUT THEIR MACHINE DOES NOT RECORD MESSAGES. [facility] IS PHARMACY AND THEY ARE CLOSED ON TUESDAY. NEITHER SON, DAUGHTER OR CAN CONFIRM WHAT MEDICATIONS PATIENT TAKES.
[2023-03-27 14:15] VITALS: BP 107/61
--- NOTE | 2023-03-27 15:51 | NUR ---
SHIFT SUMMARY R FEMUR FX/SPLINT/PETRONA/ELEVATED, CAP REFILL WNL, WIGGLES TOES. A&O2-3/FORGETFUL/PLEASANT/COOPERATIVE, VSS/RA, MARIANNE PO REG DIET, FERREIRA PATENT & DRAINING/STAT LOCK ON/OFF FLOOR, BEDREST/REPOSITIONED Q2H W/PILLOWS, REPORTS PAIN TOLERABLE-DECLINED PAIN MEDS, 20G IV RAC/NS @ 100 MLS/HR/ABX PER EMAR. PLAN NPO MIDNOC, SURGERY TOMORROW, /SON WILL BE HERE IN AM. WILL REPORT TO ONCOMING NOC RN.
--- NOTE | 2023-03-27 17:10 | NUR ---
PT REP HAVING MULTIPLE SURGERY HISTORY AND REQUIRES TITANIUM
[2023-03-27 19:48] VITALS: BP 142/62
[2023-03-28] VITALS (13 sets, daily range): BP systolic 109–152; BP diastolic 56–86
--- NOTE | 2023-03-28 08:12 | NUR ---
SHIFT SUMMARY NOC. PT A/O TO SELF AND FAMILY. PT NOT USING CALL LIGHT APPROPRIATLY AND CALLS OUT. PT TRIED TO GET OUT OF BED MULTIPLE TIMES T/O SHIFT. BED ALARM SET FOR SAFETY. PT PULLED OUT FERREIRA APPROX 2230. PT HAS VISUAL HALLUCINATIONS, NOTIFIED HOSPITALIST. RECEIVED 1X ORDER FOR TEMAZEPAM. PT RESTED PEACEFULLY UNTIL 0230 AND PULLED OUT HER IV ACCESS. PT FOUND TRYING TO GET OUT OF BED WITH GOWN OFF. PT STILL HALLUCINATING AND EXPRESSING WANTING TO GET UP AND LEAVE. PT BEGAN PULLING AT HER PETRONA WRAP AND TRYING TO TAKE OFF DRESSING ON RLE. NOTIFIED HOSPITALIST, RECEIVED ORDERS FOR SOFT RESTRAINTS AND ZYPREXA. ZYPREXA NOT ADMINISTERED, PT VERBALIZED "DON'T GIVE ME THAT". PT PULLING AGAINST RESTRAINTS, PT STOPS PULLING WITH DISTRACTION AND DISCUSSION. PT REPORTED PAIN LEVEL OF 4-5/10 BUT DECLINED PAIN MEDICATION WHEN OFFERED. PT HAS SENSATION IN BLE, GOOD CAP REFILL, AND CAN WIGGLE TOES WHEN ASKED. PT AWAKE MOST OF THE NIGHT WITH CALL LIGHT IN REACH EVEN WHILE IN RESTRAINTS.
--- NOTE | 2023-03-28 11:02 | NUR ---
ATTEMPTING TO GET IV ACCESS ON PATIENT. PT GETTING AGITATED AND TRYING TO LEAVE. ATTEMPTING TO GET OUT OF BED. UNABLE TO REDIRECT PATIENT. PT DENIES PAIN WHEN ASKED AT THIS TIME AND SAYS SHE DOES NOT NEED SURGERY. SPOKE WITH DR. ESPINOZA WHO WILL PLACE ORDERS AT THIS TIME.
--- NOTE | 2023-03-28 13:26 | NUR ---
PT BEEN TO SDS BY BED. PT NOT ORIENTED AT THIS TIME. PT APPEARS COMFORTABLE AT THIS TIME. PT REPORTED TO BE NPO. History, Chart, Medications and Allergies reviewed before start of procedure.Lungs clear T/O to Auscultation. Pre-Op teaching done. Pt verbalizes understanding.
--- NOTE | 2023-03-28 17:52 | NUR ---
SHIFT SUMMARY PT ARRIVED FROM PACU AT 1730. PT WILL AWAKEN TO VERBAL STIMULI BUT FALLS ASLEEP QUICKLY. NO GRIMACE ON PATIENTS FACE. SATS REMAIN 99% ON 2L NASAL CANULA, WILL TITRATE PATIENT WAKES UP. DRESSING TO RIGHT LEG CDI. PETRONA WRAP FROM UPPER THIGH TO TOES. LEG SOFT TO PALPATION UNDERNEATH. IMMOBILIZER IN PLACE. PEDAL PULSE STRONG,CAP REFILL <3. BED ALARM ON, CALL LIGHT PROVIDED.
--- NOTE | 2023-03-28 22:38 | NUR ---
PROGRESS NOTE. T/C PLACED TO PT'S DTR AVA PER EARLIER UPDATE REQUEST. UPDATED AVA ON PT'S STATUS. AVA VERBALIZED UNDERSTANDING AND APPRECIATION FOR UPDATE.
[2023-03-29 05:00] VITALS: BP 93/46
[2023-03-29 05:45] VITALS: BP 97/56
--- NOTE | 2023-03-29 06:39 | NUR ---
SHIFT SUMMARY NOC. PT POD 1 FOR RIGHT FEMUR ORIF. PETRONA WRAP C/D/I WITH IMOBILIZER IN PLACE. PULSES PRESENT IN BLE, CAN WIGGLE TOES WHEN ASKED, AND CAP REFILL LESS THAN 3 SECONDS. PT STARTED SHIFT AXO X1 AND COGNITION IMPROVED TO A/O X3. PT VOIDING AND TOLERATING PO WITH ASSISTANCE. PT MEDICATED FOR PAIN X1 WITH GOOD RELIEF. PT HAD HYPOTENSION WITH AM VITALS. NOTIFIED DR. MANCIA HOSPITALIST, NO NEW ORDERS RECEIVED. PT RESTED WITH EYES CLOSED AND CALL LIGHT IN REACH. PT DID FIDGIT WITH LINES AT BEGINING OF SHIFT.
[2023-03-29 07:22] VITALS: BP 90/43
[2023-03-29 08:24] LABS: BASOPHILS ABSOLUTE AUTO 0.04 K/mm3 (0.00-0.23); BASOPHILS PERCENT AUTO 0 % (0-2); EOSINOPHILS ABSOLUTE AUTO 0.02 K/mm3 (0.00-0.68); EOSINOPHILS PERCENT AUTO 0 % (0-6); Hematocrit 24.2 % (33.0-51.0); Hemoglobin 8.4 g/dL (11.5-16.0); IMMATURE GRAN ABSOLUTE AUTO 0.03 K/mm3 (0.00-0.10); IMMATURE GRAN PERCENT AUTO 0 % (0-1); LYMPHOCYTES ABSOLUTE AUTO 1.81 K/mm3 (0.84-5.20); LYMPHOCYTES PERCENT AUTO 18 % (21-46); MONOCYTES ABSOLUTE AUTO 0.69 K/mm3 (0.16-1.47); MONOCYTES PERCENT AUTO 7 % (4-13); Mean Corpuscular HGB 33.6 pg (26.0-34.0); Mean Corpuscular HGB Conc 34.7 g/dL (31.5-36.5); Mean Corpuscular Volume 97 fL (80-100); Mean Platelet Volume 10.3 fL (9.1-12.4); NEUTROPHILS ABSOLUTE AUTO 7.41 K/mm3 (1.96-9.15); NEUTROPHILS PERCENT AUTO 74 % (41-73); Platelet Count 141 K/mm3 (150-400); RDW Coefficient Variation 12.9 % (11.7-14.2); RDW Standard Deviation 45.3 fL (35.1-46.3)
[2023-03-29 08:40] LABS: Bun/Creatinine Ratio 16.6 (12.0-20.0); Calcium, Blood 8.1 mg/dL (8.5-10.1); Creatinine, Blood 0.54 mg/dL (0.40-1.00); Potassium, Blood 3.6 mmol/L (3.5-5.5)
--- NOTE | 2023-03-29 09:44 | NUR ---
PT HAS BEEN AA0X3/4 TODAY. SHE HAS BEEN CALLING APPROPRIATLY AND MAKING HER NEEDS MET. HAS MADE NO EFFORT TO GET OOB OR REMOVE CORDS. SHE IS AWARE OF HER SURGERY AND THAT SHE IS AT THE HOSPITAL. SITTER IS GONE AT THIS TIME. BED ALARM ON AND CALL LIGHT IN REACH.
[2023-03-29 10:01] LABS: Percent Saturation 16.4 % (15.0-50.0)
[2023-03-29 13:30] VITALS: BP 109/56
[2023-03-29 15:07] VITALS: BP 102/47
--- NOTE | 2023-03-29 17:25 | NUR ---
SHIFT SUMMARY POD 1 R ORIF. PT ABLE TO WORK WITH THERAPY ON THE EDGE OF THE BED. PARTICIPATED IN CARE. COGNITION IMPROVED. FORGETFUL AT TIMES BUT NOT ATTEMPTING OOB OR PULLING AT LINES. MEDICATION PER EMAR. DENIES PAIN FOR A LOT OF SHIFT, REPOSITIONING FREQUENTLY HELPS MANAGE PAIN. DRESSING AND IMMOBILIZER REMAIN CDI.
[2023-03-29 19:23] VITALS: BP 114/68
[2023-03-30 04:17] LABS: Hematocrit 21.8 % (33.0-51.0); Hemoglobin 7.5 g/dL (11.5-16.0); Mean Corpuscular HGB Conc 34.4 g/dL (31.5-36.5); Mean Corpuscular Volume 96 fL (80-100); Mean Platelet Volume 10.9 fL (9.1-12.4); Platelet Count 154 K/mm3 (150-400); RDW Coefficient Variation 12.9 % (11.7-14.2); RDW Standard Deviation 44.6 fL (35.1-46.3); Red Blood Cell Count 2.27 M/mm3 (3.80-5.20); White Blood Cell Count 6.51 K/mm3 (4.00-11.30)
--- NOTE | 2023-03-30 04:34 | NUR ---
SHIFT SUMMARY POD2 R FEMUR NAILING. IMMOBILIZER AND PETRONA WRAP REMAINS IN PLACE, SENSATION AND CIRCULATION REMAINS INTACT. VSS. PT SLEPT WELL T/O THE NIGHT. INCONTINENT VOIDS NOTED T/O THE NIGHT, LARGE AMOUNTS OF URINE AT A TIME. NO BM NOTED. LOW PO INTAKE NOTED, IV FLUIDS INFUSING. MEDICATED FOR PAIN ONCE WITH PRN W/GOOD RESULTS. NO ACUTE EVENTS NOTED. PLAN FOR PT TO KEEP WORKING W/ PHYSICAL THERAPY.
[2023-03-30 04:58] VITALS: BP 109/55
[2023-03-30 07:00] VITALS: BP 112/50
[2023-03-30 13:28] LABS: BASOPHILS ABSOLUTE AUTO 0.05 K/mm3 (0.00-0.23); BASOPHILS PERCENT AUTO 1 % (0-2); EOSINOPHILS ABSOLUTE AUTO 0.05 K/mm3 (0.00-0.68); EOSINOPHILS PERCENT AUTO 1 % (0-6); Hematocrit 24.4 % (33.0-51.0); Hemoglobin 8.4 g/dL (11.5-16.0); IMMATURE GRAN ABSOLUTE AUTO 0.03 K/mm3 (0.00-0.10); IMMATURE GRAN PERCENT AUTO 0 % (0-1); LYMPHOCYTES ABSOLUTE AUTO 1.73 K/mm3 (0.84-5.20); LYMPHOCYTES PERCENT AUTO 23 % (21-46); MONOCYTES ABSOLUTE AUTO 0.48 K/mm3 (0.16-1.47); MONOCYTES PERCENT AUTO 6 % (4-13); Mean Corpuscular HGB 33.3 pg (26.0-34.0); Mean Corpuscular HGB Conc 34.4 g/dL (31.5-36.5); Mean Corpuscular Volume 97 fL (80-100); Mean Platelet Volume 10.8 fL (9.1-12.4); NEUTROPHILS ABSOLUTE AUTO 5.29 K/mm3 (1.96-9.15); NEUTROPHILS PERCENT AUTO 69 % (41-73); Platelet Count 205 K/mm3 (150-400); RDW Coefficient Variation 13.1 % (11.7-14.2); RDW Standard Deviation 45.4 fL (35.1-46.3); Red Blood Cell Count 2.52 M/mm3 (3.80-5.20); White Blood Cell Count 7.63 K/mm3 (4.00-11.30)
[2023-03-30 14:31] VITALS: BP 104/50
--- NOTE | 2023-03-30 14:58 | NUR ---
REPORT PROVIDED TO TANGELA MCINTOSH [facility]
--- NOTE | 2023-03-30 16:30 | NUR ---
TRANSFER PT A&O3, VSS/RA, MARIANNE PO, INCONTINENT VOIDS/CLEAN ATTENDS ON, EXT DWELL DC'D, LEFT VIA GURNEY WITH ALL PERSONAL POSSESSIONS.
== END 2023-03-30 16:32 | DRG 481 ==
LOC: ER 13:10 → SURS 17:27
PROVIDERS: Orthopaedic Surgery Sports Medicine; Physician Assistant; Student in an Organized Health Care Education/Training Program; ADMIT Internal Medicine
PROC: 0QS804Z Reposition Right Femoral Shaft with Internal Fixation Device, Open Approach (ICD-10-PCS; principal; 2023-03-28 13:00)
DX: S72.301A Unspecified fracture of shaft of right femur, initial encounter for closed fracture (principal); M97.11XA Periprosthetic fracture around internal prosthetic right knee joint, initial encounter; I10 Essential (primary) hypertension; M06.9 Rheumatoid arthritis, unspecified; M81.0 Age-related osteoporosis without current pathological fracture; W01.0XXA Fall on same level from slipping, tripping and stumbling without subsequent striking against object, initial encounter; Y92.009 Unspecified place in unspecified non-institutional (private) residence as the place of occurrence of the external cause; Z22.359 Carrier of Enterobacterales, unspecified; Z88.0 Allergy status to penicillin; Z88.1 Allergy status to other antibiotic agents; Z88.6 Allergy status to analgesic agent; Z88.8 Allergy status to other drugs, medicaments and biological substances; Z91.040 Latex allergy status; Z79.02 Long term (current) use of antithrombotics/antiplatelets; Z79.83 Long term (current) use of bisphosphonates; Z87.891 Personal history of nicotine dependence; Z86.73 Personal history of transient ischemic attack (TIA), and cerebral infarction without residual deficits
CPT/HCPCS: 36415; 51702; 70450; 73552; 80048; 80053; 81001; 82728; 83540; 83550; 85025; 85027; 87077; 87086; 87186; 94762; 96374; 96376; 97110; 97162; 97165; 97530; 99285-25; A9270; C1769; J0171; J0690; J0735; J0744; J1100; J1170; J1650; J1885; J2250; J2405; J2704; J2795; J2916; J3010; J7030; J7120

== ENCOUNTER 2024-05-02 08:53 | Emergency (ER) | payer MEDICARE, OTHER ==
[~2024-05-02] VITALS: Ht 157.5 cm; Wt 65.8 kg
[2024-05-02 09:06] VITALS: BP 166/78
== END 2024-05-02 11:24 | disposition home or self-care (01) ==
LOC: ER 08:53
DX: S30.0XXA Contusion of lower back and pelvis, initial encounter (principal); K21.9 Gastro-esophageal reflux disease without esophagitis; Z88.0 Allergy status to penicillin; Z88.1 Allergy status to other antibiotic agents; Z91.040 Latex allergy status; Z91.048 Other nonmedicinal substance allergy status; Z88.8 Allergy status to other drugs, medicaments and biological substances; Z79.82 Long term (current) use of aspirin; Z79.899 Other long term (current) drug therapy; Z87.891 Personal history of nicotine dependence; W18.30XA Fall on same level, unspecified, initial encounter
CPT/HCPCS: 72100; 99283-25

== ENCOUNTER 2024-11-18 08:15 | Observation (INO) | payer MEDICARE, OTHER ==
[~2024-11-18] VITALS: Ht 157.5 cm; Wt 59.1 kg
[2024-11-18 08:58] LABS: Source, Urine Clean Catch
[2024-11-18 09:06] LABS: Bilirubin, Urine Neg (Neg); Glucose Qualitative, Urine Neg (Neg); Ketones, Urine Neg (Neg); Leukocyte Esterase, Urine Neg (Neg); Protein, Urine Neg (Neg); Specific Gravity, Urine 1.015 (1.003-1.022); Urobilinogen, Urine NORM (Normal)
[2024-11-18 09:19] LABS: Color, Urine Pale Yellow (P-Yellow)
[2024-11-18 09:30] LABS: Red Blood Cells, Urine 0-2 /hpf (0-2); White Blood Cells, Urine 0-2 /hpf (0-5)
[2024-11-18] MEDS ORDERED: HYDROmorphone HCl/Pf 1MG SYR IV ONE (09:55)
[2024-11-18] MEDS ORDERED: Ondansetron HCl 2 MG / ML 2ML Vial IV ONE (09:55)
[2024-11-18] MEDS ORDERED: HYDROmorphone HCl/Pf 1MG SYR IV PRN (11:05)
[2024-11-18] MEDS ORDERED: Polyethylene Glycol 3350 17 gm PO PRN (11:05)
[2024-11-18 11:08] LABS: BASOPHILS ABSOLUTE AUTO 0.03 K/mm3 (0.00-0.23); BASOPHILS PERCENT AUTO 0 % (0-2); EOSINOPHILS ABSOLUTE AUTO 0.02 K/mm3 (0.00-0.68); EOSINOPHILS PERCENT AUTO 0 % (0-6); Hematocrit 42.0 % (33.0-51.0); Hemoglobin 14.4 g/dL (11.5-16.0); IMMATURE GRAN ABSOLUTE AUTO 0.03 K/mm3 (0.00-0.10); IMMATURE GRAN PERCENT AUTO 0 % (0-1); LYMPHOCYTES ABSOLUTE AUTO 1.20 K/mm3 (0.84-5.20); LYMPHOCYTES PERCENT AUTO 14 % (21-46); MONOCYTES ABSOLUTE AUTO 0.48 K/mm3 (0.16-1.47); MONOCYTES PERCENT AUTO 6 % (4-13); Mean Corpuscular HGB Conc 34.3 g/dL (31.5-36.5); Mean Corpuscular Volume 93 fL (80-100); NEUTROPHILS ABSOLUTE AUTO 6.55 K/mm3 (1.96-9.15); NEUTROPHILS PERCENT AUTO 79 % (41-73); NRBC ABSOLUTE 0.00 K/mm3 (0.00-0.02); NRBC Auto 0.0 /100 WBC (0.0-0.2); Platelet Count 203 K/mm3 (150-400); RDW Coefficient Variation 12.1 % (11.7-14.2); RDW Standard Deviation 41.9 fL (35.1-46.3)
[2024-11-18 11:35] LABS: Alanine Aminotransfer (ALT/SGP 22.0 U/L (12-78); Albumin, Blood 3.4 g/dL (3.4-5.0); Albumin/Globulin Ratio 1.0 (0.8-1.8); Anion Gap 6.0 mmol/L (3-11); Aspartate Aminotrans (AST/SGOT 22.0 U/L (12-37); Bilirubin, Total 0.6 mg/dL (0.1-1.0); Blood Urea Nitrogen 9.0 mg/dL (8-24); CO2, Blood 30.0 mmol/L (21-32); Calcium, Blood 8.6 mg/dL (8.5-10.1); Chloride, Blood 107.0 mmol/L (98-108); Creatinine, Blood 0.48 mg/dL (0.40-1.00); Globulin, Blood 3.5 g/dL (2.2-4.0); Glucose, Blood 109.0 mg/dL (70-99); Potassium, Blood 3.8 mmol/L (3.5-5.5); Sodium, Blood 139.0 mmol/L (136-145); Total Protein, Blood 6.9 g/dL (6.4-8.2)
[2024-11-18 13:35] VITALS: BP 146/64
--- NOTE | 2024-11-18 13:40 | NUR ---
PT TO ROOM 218 FROM ED. 20 G SL PRESENT R AC FLUSHED AND SALINE LOCKED. HERE FOR L TROCHANTERIC AVULSION FX. PRESENTLY ON BEDREST. VSS. PT DENIES COMPLAINTS. PUREWICK SYSTEM PLACED FOR PT. WILL CONTINUE TO MONITOR.
--- NOTE | 2024-11-18 14:24 | NUR ---
PT FOUND ATTEMPTING TO GET OOB. PT REORIENTED. REPEAT ATTEMPT TO GET OOB ONE MINUTE LATER. BED EXIT ALARM ON HIGH SENSITIVITY. CLOTHING ROOM SUPERVISOR NOTIFIED. WILL CONTINUE TO MONITOR.
--- NOTE | 2024-11-18 14:29 | NUR ---
PT TRANSFERRED TO ROOM 212 TO BE CLOSER TO THE NURSING STATION.
--- NOTE | 2024-11-18 17:35 | NUR ---
SHIFT SUMMARY PT WITH CONFUSION ON ARRIVAL TO UNIT. PRESENTLY MOVED TO ROOM 212. EATING MEAL TRAY. NON-CLINICAL SITTER AT BEDSIDE. BED ALARM ON. WBAT PER DR ANGLIN.
[2024-11-18 19:53] VITALS: BP 140/68
[2024-11-18] MEDS ORDERED: Docusate Sodium/Senna 1 Tab PO SCH (21:00)
--- NOTE | 2024-11-19 04:13 | NUR ---
SHIFT SUMMARY NOC. PT ADMIT FOR NON SURGICAL LEFT GREATER TROCHANTER FX AFTER FALL. PT A/O TO SELF/PERSON. PT FORGETFUL, BUT REDIRECTABLE. PT HAS SET OFF BED ALARM A FEW TIMES THIS SHIFT. PT INCONTINENT OF URINE AND PULLED OUT PUREWICK, ATTENDS IN PLACE. PT MEDICATED FOR PAIN WITH REPORTED RELIEF. CALL LIGHT IN REACH.
[2024-11-19 05:10] VITALS: BP 126/63
[2024-11-19 05:22] LABS: Hematocrit 40.6 % (33.0-51.0); Hemoglobin 14.1 g/dL (11.5-16.0); Mean Corpuscular HGB Conc 34.7 g/dL (31.5-36.5); Mean Corpuscular Volume 94 fL (80-100); NRBC ABSOLUTE 0.00 K/mm3 (0.00-0.02); NRBC Auto 0.0 /100 WBC (0.0-0.2); Platelet Count 202 K/mm3 (150-400); RDW Coefficient Variation 12.1 % (11.7-14.2); RDW Standard Deviation 42.1 fL (35.1-46.3)
[2024-11-19 05:49] LABS: Magnesium, Blood 1.9 mg/dL (1.6-2.4)
[2024-11-19 05:50] LABS: Albumin, Blood 2.9 g/dL (3.4-5.0); Anion Gap 8 mmol/L (3-11); Blood Urea Nitrogen 10 mg/dL (8-24); CO2, Blood 25 mmol/L (21-32); Calcium, Blood 8.7 mg/dL (8.5-10.1); Chloride, Blood 108 mmol/L (98-108); Creatinine, Blood 0.55 mg/dL (0.40-1.00); Glucose, Blood 105 mg/dL (70-99); Phosphorus, Blood 3.9 mg/dL (2.5-4.9); Potassium, Blood 3.8 mmol/L (3.5-5.5); Sodium, Blood 137 mmol/L (136-145)
[2024-11-19 07:29] VITALS: BP 119/65
[2024-11-19 14:46] VITALS: BP 119/70
[2024-11-19] MEDS ORDERED: Enoxaparin 30 MG/0.3 ML SYR SC SCH (15:00)
--- NOTE | 2024-11-19 17:03 | NUR ---
SUMMARY ASSUMED CARE OF PT @0700. VSS. AXO2-3. FORGETFUL/IMPULSIVE/FALL RISK ALL HAVE LEAD TO 1:1 SITTER USE, PT RESPONDS WELL TO VERBAL REDIRECTION. WBAT TO L LEG, TOLERATES AMBULATING VERY SMALL DISTANCES WITH 2 STAFF ASSIST, GB, FWW. PT NEEDS CONSTANT VERBAL CUEING/REDIRECTION TO SUCCESFULLY GET TO BSC AND BACK. PHYSICAL THERAPY WORKED WITH PT, FOUND PT DID OK WITH SMALL DIATANCES WELL AND DIDNT SUGGEST GOING FARTHER THAN BEDSIDE COMMODE AND BACK CURRENTLY. DAUGHTERS AT BEDSIDE T/O SHIFT. DC PLANS HAVE CHANGED FROM SNF, TO HOME, TO SNF, TO HOME. CARE MANAGEMENT WORKING ON THIS WITH DAUGHTERS PT CAN'T MAKE DECISIONS FOR HERSELF. OTHERWISE, PT VOIDING, AMBULATING, EATING, AND IS AT BASELINE MENTATION. BED ALARM IN PLACE.
[2024-11-19 19:33] VITALS: BP 122/65
--- NOTE | 2024-11-20 05:02 | NUR ---
SHIFT SUMMARY NOC. PT ADMIT FOR NON SURGICAL LEFT TROCHANTERIC AVULSION FX AFTER GLF. PT A/O X1-2 TO SELF/PERSON. PT FORGETFUL AND REDIRECTABLE, NEEDS LOTS OF VERBAL QUING FOR TRANSFERING, PT DOES STAND PIVOT WITH GB AND FWW. BED ALARM AND 1:1 SITTER FOR SAFETY D/T IMPULSIVITY. PT FIDGITS WITH BLANKETS AND GOWN. PT VOIDING URINE, ATTENDS IN PLACE. PT MEDICATED FOR PAIN WITH REPORTED RELIEF. CALL LIGHT IN REACH.
[2024-11-20 05:45] VITALS: BP 128/69
[2024-11-20 07:09] VITALS: BP 137/72
[2024-11-20] MEDS ORDERED: Acetaminophen325 M1 PO (13:17)
[2024-11-20] MEDS ORDERED: MIRALAX17 GM PO (13:18)
[2024-11-20] MEDS ORDERED: ASPI81CH PO (13:18)
[2024-11-20] MEDS ORDERED: FT SENNA-S 8.61 EACH PO (13:21)
--- NOTE | 2024-11-20 13:26 | NUR ---
SUMMARY ASSUMED CARE OF PT @0700. VSS. W/O BRUISING TO L HIP. 1:1 SITTER AT BEDSIDE FOR FALL SAFETY. ON RA. NO ACUTE CHANGES OVERNIGHT. PT DENYING NEED FOR PAIN MEDICATIONS AND DOESN'T PRESENT WITH A FLACC SCORE >1. DAUGHTER IN ROOM AFTER BREAKFAST. PHYSICAL THERAPY WORKED WITH PT WELL CARE MANAGEMENT. BETWEEN DAUGHTERS/PHYSICIAN/CARE MANAGEMENT - DECISION MADE FOR PT TO DC HOME WITH HH SHE DOESN'T QUALIFY FOR SNF. DC ORDERS RECEIVED. EDUCATION PROVIDED TO PT AND DAUGHTERS. AWAITING DC NOW.
--- NOTE | 2024-11-20 14:28 | NUR ---
PT WHEELED OUT TO [employer] CAR @7562 AND DC'D WITH BELONGINGS
== END 2024-11-20 13:58 | disposition home or self-care (01) ==
LOC: ER 08:15 → SURS 08:16 → ERHOLD 11:03 → ER 11:03 → SURS 11:03 → ERHOLD 13:35 → SURS 13:35
PROVIDERS: Emergency Medicine; ADMIT Internal Medicine
DX: S72.112A Displaced fracture of greater trochanter of left femur, initial encounter for closed fracture (principal); M97.02XA Periprosthetic fracture around internal prosthetic left hip joint, initial encounter; W06.XXXA Fall from bed, initial encounter; I10 Essential (primary) hypertension; R82.998 Other abnormal findings in urine; M06.9 Rheumatoid arthritis, unspecified; Z88.0 Allergy status to penicillin; Z88.1 Allergy status to other antibiotic agents; Z88.8 Allergy status to other drugs, medicaments and biological substances; Z91.040 Latex allergy status; Z91.09 Other allergy status, other than to drugs and biological substances; Z86.73 Personal history of transient ischemic attack (TIA), and cerebral infarction without residual deficits
CPT/HCPCS: 36415; 72192; 73502; 80053; 80069; 81001; 82550; 83735; 85025; 85027; 87077; 87086; 87186; 93005; 93010; 96372; 97110; 97116; 97161; 97530; 99285-25; A9270; G0378; J1650